=== PATIENT | female | born 1945 | race Caucasian/White ===

== ENCOUNTER 2016-12-03 08:29 | Outpatient (RCR) | payer MEDICARE, OTHER | END 2016-12-04 | disposition home or self-care (01) | PROVIDERS: ATTEND Internal Medicine Hematology & Oncology | DX: R53.1 Weakness (principal); C83.38 Diffuse large B-cell lymphoma, lymph nodes of multiple sites ==

== ENCOUNTER 2016-12-24 10:00 | Outpatient (RCR) | payer MEDICARE, OTHER | END 2017-03-24 | disposition home or self-care (01) | LOC: ONC 10:00 | PROVIDERS: ATTEND Radiology Radiation Oncology | DX: C83.38 Diffuse large B-cell lymphoma, lymph nodes of multiple sites (principal) | CPT/HCPCS: 99214 ==

== ENCOUNTER 2017-01-12 09:00 | Outpatient (RCR) | payer MEDICARE, OTHER | END 2017-01-12 09:56 | disposition home or self-care (01) | PROVIDERS: ATTEND Internal Medicine Hematology & Oncology | DX: R53.1 Weakness (principal); C83.38 Diffuse large B-cell lymphoma, lymph nodes of multiple sites ==